=== PATIENT | male | born 1975 | race Caucasian/White ===

== ENCOUNTER 2017-08-16 10:12 | Emergency (ER) | payer MEDICARE, OTHER ==
[~2017-08-16] VITALS: Ht 172.7 cm; Wt 66.0 kg
[2017-08-16 10:49] VITALS: BP 143/80; PULSE 78; RESP 14; TEMP 99.2; O2SAT 99
[2017-08-16 13:31] LABS: AUTOMATED NEUTROPHIL # 5.7 TH/MM3 (1.8-7.7); BASOPHIL % 0.3 % (0.0-2.0); EOSINOPHIL % 0.3 % (0.0-4.0); HEMATOCRIT 43.1 % (39.0-51.0); HEMOGLOBIN 15.5 GM/DL (13.0-17.0); LYMPH % 17.6 % (9.0-44.0); LYMPHOCYTE # 1.4 TH/MM3 (1.0-4.8); MEAN CELL VOLUME 91.8 FL (80.0-100.0); MEAN CORPUSCULAR HGB CONC 35.9 % (32.0-36.0); MEAN PLATELET VOLUME 6.5 FL (7.0-11.0); MONO % 8.2 % (0.0-8.0); MONOCYTE # 0.6 TH/MM3 (0-0.9); NEUT % 73.6 % (16.0-70.0); PLATELET COUNT 272 TH/MM3 (150-450); RED BLOOD COUNT 4.69 MIL/MM3 (4.50-5.90); RED CELL DISTRIBUTION WIDTH 12.5 % (11.6-17.2); WHITE BLOOD COUNT 7.8 TH/MM3 (4.0-11.0)
--- NOTE | 2017-08-16 13:35 | PD ---
HPI Chief Complaint: Psychiatric Symptoms Time Seen by Provider: 12:29 Travel History International Travel<30 days: No Contact w/Intl Traveler<30days: No Traveled to known affect area: No History of Present Illness HPI 42-year-old male presents to the emergency department voluntarily for psych evaluation. 6 days ago he had injections and bilateral list of Kenalog and the next day he started having feelings anxiety and not being able to sleep for the past 4-5 days. 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 He had acupuncture session for his knee and the next day his hands got weak. He went to his hand doctor and received the injections into his wrist. He says he "feels like I cannot go on." He has no psychiatric history. He says he is not having suicidal thoughts, just does not feel like his body is going to make it. He says he feels like something is going on inside of him. He cannot sleep. He has not worked for 2 weeks. His says last night he was pacing around the house and saying crazy things, like he was going to and he does not want to live anymore. His states his legs were shaking last night and he was making comments that he had a tumor in his brain. He says he gets shaky and cold. He feels like his pulse is heavy. He feels like he should be having a heart attack or seizure. He says he woke up early this morning after sleeping for only about 30 minutes and felt paralyzed. He denies any chest pain, shortness of breath, abdominal pain, diarrhea, constipation, change in urine. Says he has been feeling constantly nauseated with "a little bit" of vomiting. Last vomited yesterday. Denies lightheadedness, headache, dizziness, focal deficits or weakness. He was seen at [facility] on Sunday and all his labs were normal and he was told to follow-up with a neurologist. He has an appointment with neurologist [facility]. He also has a primary care provider, Dr. Maik Barry, and has an appointment on Sunday. He states he cannot make it that long, and when he sees him he is probably not going to do anything for him. He did prescribe Xanax to his mother and has been taking the Xanax to try to sleep, without relief. He is only getting 30 minutes to 1 hour of sleep and then he is up "staring at the clock." Denies illicit drug use. Denies alcohol use. Denies tobacco use. Symptoms are moderate to severe in severity. Symptoms are possibly aggravated by Kenalog injections into the wrist, otherwise unknown. No known relieving factors. Onset and duration 6 days. Denies significant past medical history. No known allergies. Has no other medical complaints. No other modifying factors or associated signs and symptoms. 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 HEAD: Atraumatic. Normocephalic. No facial droop noted. Tongue midline. Shoulder shrug equal. Finger to nose test normal. EYES: Pupils equal and round at 3 mm with brisk reaction. No scleral icterus. No injection or drainage. PERRLA. EOMI. ENT: Mucosa pink and moist. Airway patent. NECK: Trachea midline. No lymphadenopathy. CARDIOVASCULAR: Regular rate and rhythm. No murmur appreciated. RESPIRATORY: No accessory muscle use. Breath sounds clear and equal bilaterally. No retractions or tachypnea. GASTROINTESTINAL: Abdomen soft, non-tender, nondistended. Positive bowel sounds. No hepato-splenomegaly, or palpable masses. No guarding. MUSCULOSKELETAL: No obvious deformities. No clubbing. No cyanosis. No edema. NEUROLOGICAL: Awake and alert. Oriented 4. No obvious cranial nerve deficits. Motor grossly within normal limits. Normal speech. No ataxia. No mid -line drift. No upper or lower extremity drift. Training Director strength equal bilaterally. Sensory intact and equal bilaterally. Moves all extremities. Active plantar and dorsiflexion and strength equal bilaterally. 5/5 strength to all extremities. PSYCHIATRIC: Appropriate mood and affect; insight and judgment normal. Data Data Last Documented VS Vital Signs Date Time Temp Pulse Resp B/P (MAP) Pulse Ox O2 Delivery O2 Flow Rate FiO2 08/16/17 15:36 68 18 134/81 (98) 98 Room Air 08/16/17 10:49 99.2 Orders Orders Complete Blood Count With Diff (08/16/17 12:57) Comprehensive Metabolic Panel (08/16/17 12:57) Thyroid Stimulating Hormone (08/16/17 12:57) Urinalysis - C+S If Indicated (08/16/17 12:57) Psych Screen (08/16/17 12:57) Drug Screen, Random Urine (08/16/17 12:57) Alcohol (Ethanol) (08/16/17 12:57) Salicylates (Aspirin) (08/16/17 12:57) Tylenol (Acetaminophen) (08/16/17 12:57) Lorazepam (Ativan) (08/16/17 15:00) Labs Laboratory Tests Test 08/16/17 13:15 White Blood Count 7.8 TH/MM3 Red Blood Count 4.69 MIL/MM3 Hemoglobin 15.5 GM/DL Hematocrit 43.1 % Mean Corpuscular Volume 91.8 FL Mean Corpuscular Hemoglobin 33.0 PG Mean Corpuscular Hemoglobin Concent 35.9 % Red Cell Distribution Width 12.5 % Platelet Count 272 TH/MM3 Mean Platelet Volume 6.5 FL Neutrophils (%) (Auto) 73.6 % Lymphocytes (%) (Auto) 17.6 % Monocytes (%) (Auto) 8.2 % Eosinophils (%) (Auto) 0.3 % Basophils (%) (Auto) 0.3 % Neutrophils # (Auto) 5.7 TH/MM3 Lymphocytes # (Auto) 1.4 TH/MM3 Monocytes # (Auto) 0.6 TH/MM3 Eosinophils # (Auto) 0.0 TH/MM3 Basophils # (Auto) 0.0 TH/MM3 CBC Comment DIFF FINAL Differential Comment Urine Color YELLOW Urine Turbidity CLEAR Urine pH 7.0 Urine Specific [place] 1.011 Urine Protein NEG mg/dL Urine Glucose (UA) NEG mg/dL Urine Ketones NEG mg/dL Urine Occult Blood NEG Urine Nitrite NEG Urine Bilirubin NEG Urine Urobilinogen LESS THAN 2.0 MG/DL Urine Leukocyte Esterase NEG Urine RBC LESS THAN 1 /hpf Urine Mucus FEW /lpf Microscopic Urinalysis Comment CULT NOT INDICATED Blood Urea Nitrogen 11 MG/DL Creatinine 0.94 MG/DL Random Glucose 89 MG/DL Total Protein 7.3 GM/DL Albumin 4.1 GM/DL Calcium Level 8.6 MG/DL Alkaline Phosphatase 57 U/L Aspartate Amino Transf (AST/SGOT) 20 U/L Alanine Aminotransferase (ALT/SGPT) 26 U/L Total Bilirubin 0.6 MG/DL Sodium Level 141 MEQ/L Potassium Level 3.7 MEQ/L Chloride Level 106 MEQ/L Carbon Dioxide Level 27.8 MEQ/L Anion Gap 7 MEQ/L Estimat Glomerular Filtration Rate 87 ML/MIN Thyroid Stimulating Hormone 3rd Gen 1.070 uIU/ML Salicylates Level LESS THAN 1.7 MG/DL Urine Opiates Screen NEG Acetaminophen Level LESS THAN 2.0 MCG/ML Urine Barbiturates Screen NEG Urine Amphetamines Screen NEG Urine Benzodiazepines Screen POS Urine Cocaine Screen NEG Urine Cannabinoids Screen NEG Ethyl Alcohol Level LESS THAN 3 MG/DL MDM Medical Decision Making Medical Screen Exam Complete: Yes Emergency Medical Condition: Yes Medical Record Reviewed: Yes Differential Diagnosis Anxiety, chadwick, insomnia, encounter for psychological evaluation Narrative Course Patient presents voluntarily. Physical examination and vital signs are essentially unremarkable. Patient has no medical complaints to report. Psych screen has been ordered. If the laboratory results are unremarkable, the patient will be medically cleared for psychiatric evaluation and disposition. 1710: MELI Braswell evaluated the patient and cleared the patient for discharge. Patient contracts safety. Denies suicidal or homicidal ideations. Patient will be provided community resource packet to [facility] for follow-up. Has friends and family for support. Patient was medically cleared by alternate provider prior to psych screening. Patient has been evaluated by psychiatry and and is now cleared for discharge. Diagnosis Primary Impression: Insomnia due to anxiety and fear Referrals: Neurologist Primary Care Physician Psychiatrist Patient Instructions: Anxiety (ED), General Instructions, Insomnia (ED) Additional Instructions: Contract safety to your self and others Follow-up with neurology Follow-up with psychiatry Follow-up with primary care provider Return to the emergency department immediately with worsening of symptoms Med/Other Pt SpecificInfo: Prescription(s) given Scripts Quetiapine (Seroquel) 50 Mg Tab 50 MG PO HS for Insomnia, #30 TAB 0 Refills Prov: Edel Huff 08/16/17 Disposition: 01 DISCHARGE HOME Condition: Stable [place] Toussaint August 16, 2017 13:35
[2017-08-16 13:54] LABS: ALBUMIN 4.1 GM/DL (3.4-5.0); ALT (GPT) 26 U/L (12-78); AST (GOT) 20 U/L (15-37); BICARBONATE 27.8 MEQ/L (21.0-32.0); BILIRUBIN, URINE NEG (NEG); BLOOD UREA NITROGEN 11 MG/DL (7-18); BLOOD, URINE NEG (NEG); CALCIUM 8.6 MG/DL (8.5-10.1); CHLORIDE 106 MEQ/L (98-107); CREATININE 0.94 MG/DL (0.60-1.30); GLOMERULAR FILTRATION RATE 87 ML/MIN (>89); GLUCOSE,RANDOM 89 MG/DL (74-106); GLUCOSE,URINE NEG (NEG); KETONE, URINE NEG (NEG); MUCUS URINE FEW /lpf (OCC); NITRITE,URINE NEG (NEG); SODIUM (NA) 141 MEQ/L (136-145); URINE COLOR YELLOW (YELLW/STRAW); URINE LEUKOCYTE ESTERASE NEG (NEG)
[2017-08-16 14:04] LABS: ALKALINE PHOSPHATASE 57 U/L (45-117); TOTAL BILIRUBIN ADULT 0.6 MG/DL (0.2-1.0); TOTAL PROTEIN 7.3 GM/DL (6.4-8.2)
[2017-08-16 14:18] LABS: ACETAMINOPHEN LESS THAN 2.0 MCG/ML (10.0-30.0)
[2017-08-16] MEDS ORDERED: LORazepam 1 MG TAB PO ONE (15:00)
[2017-08-16 15:36] VITALS: BP 134/81; PULSE 68; RESP 18; O2SAT 98
[2017-08-16] MEDS ORDERED: SERO50TA PO (16:38)
--- NOTE | 2017-08-16 17:21 | PD ---
History of Present Illness Chief Complaint: Psychiatric Symptoms Time Seen by Provider: 16:45 Travel History International Travel<30 Days: No Contact w/Intl Traveler<30days: No Known affected area: No History of Present Illness: 42-year old, , male presents voluntarily to the facility for insomnia and anxiety. He has no history of mental illness. Reviewed electronic medical records, labs, discuss case with staff. Patient evaluation was performed in his room and the ED main with his present. 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 He is being treated by a physician who gave him bilateral injections of Kenalog. The day after the injections he reports that he began to experience flushing, racing heartbeat, and insomnia. He has attempted to treat his insomnia with 0.25 mg Xanax. He has been unsuccessful so far. Upon examination patient is awake, alert, and oriented 4. He was medicated with Ativan by the medical provider and during examination he is lying on the bed relaxed. His speech is clear, organized, and logical. There is no indication of internal stimulation nor thought blocking. He denies being suicidal, homicidal, experiencing auditory or visual hallucinations. Patient does confess to being a bit of a worrier and to suffering from some "hypochondriac". He states that when he experiencing these symptoms at night he wakes up thinking that "I have a brain tumor". He is continuing to be worked up for the neuropathy in his hands, this is caused him stress due to the nature of his career. He lives with his and 2 children and reports being happily . His major concern at this point is getting adequate sleep. 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 No familial mental health history that the patient is aware of. Allergies-Medications (Allergen,Severity, Reaction): Coded Allergies: No Known Allergies (Unverified , 08/16/17) Reported Meds & Prescriptions Reported Meds & Active Scripts Active Seroquel (Quetiapine Fumarate) 50 Mg Tab 50 Mg PO HS Mental Status Examination Appearance: Appropriate Consciousness: Alert Orientation: x4 Motor Activity: Normal gait Speech: Unremarkable Language: Adequate Fund of Knowledge: Adequate Attention and Concentration: Adequate Memory: Unremarkable Mood: Anxious Affect: Anxious Thought Process & Associations: Intact, Logical Thought Content: Appropriate Hallucination Type: None Delusion Type: None Suicidal Ideation: No Suicidal Plan: No Suicidal Intention: No Homicidal Ideation: No Homicidal Intention: No Insight: Adequate Judgment: Adequate MDM Medical Decision Making Medical Record Reviewed: Yes Assessment/Plan 42 year old , male who reports to this facility voluntarily for anxiety and insomnia. Upon examination today patient is alert and oriented 4. His speech is clear, organized, and logical. There is no indication of internal stimulation or thought blocking. His mood and affect are both slightly anxious. He denies suicidal ideation, homicidal ideation, auditory or visual hallucinations. He reports that he has been undergoing testing due to bilateral neuropathy of his hands. 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 After receiving recent bilateral IM injections of steroids he began experiencing flushing, racing heart, and insomnia. Explained to patient that these can be side effects of injected steroids. I consulted with Dr. Rees as to treatment for this gentleman as I do not feel he meets inpatient admission criteria. Patient is to be discharged to home with a prescription for Seroquel 50 mg taken at bedtime. He is advised to obtain a psychiatrist for follow-up. He was instructed to return to this facility should his condition worsen. Orders Orders Complete Blood Count With Diff (08/16/17 12:57) Comprehensive Metabolic Panel (08/16/17 12:57) Thyroid Stimulating Hormone (08/16/17 12:57) Urinalysis - C+S If Indicated (08/16/17 12:57) Psych Screen (08/16/17 12:57) Drug Screen, Random Urine (08/16/17 12:57) Alcohol (Ethanol) (08/16/17 12:57) Salicylates (Aspirin) (08/16/17 12:57) Tylenol (Acetaminophen) (08/16/17 12:57) Lorazepam (Ativan) (08/16/17 15:00) Results Vital Signs Date Time Temp Pulse Resp B/P (MAP) Pulse Ox O2 Delivery O2 Flow Rate FiO2 08/16/17 15:36 68 18 134/81 (98) 98 Room Air 08/16/17 10:49 99.2 78 14 143/80 (101) 99 Laboratory Tests Test 08/16/17 13:15 White Blood Count 7.8 Red Blood Count 4.69 Hemoglobin 15.5 Hematocrit 43.1 Mean Corpuscular Volume 91.8 Mean Corpuscular Hemoglobin 33.0 Mean Corpuscular Hemoglobin Concent 35.9 Red Cell Distribution Width 12.5 Platelet Count 272 Mean Platelet Volume 6.5 Neutrophils (%) (Auto) 73.6 Lymphocytes (%) (Auto) 17.6 Monocytes (%) (Auto) 8.2 Eosinophils (%) (Auto) 0.3 Basophils (%) (Auto) 0.3 Neutrophils # (Auto) 5.7 Lymphocytes # (Auto) 1.4 Monocytes # (Auto) 0.6 Eosinophils # (Auto) 0.0 Basophils # (Auto) 0.0 CBC Comment DIFF FINAL Differential Comment Urine Color YELLOW Urine Turbidity CLEAR Urine pH 7.0 Urine Specific [place] 1.011 Urine Protein NEG Urine Glucose (UA) NEG Urine Ketones NEG Urine Occult Blood NEG Urine Nitrite NEG Urine Bilirubin NEG Urine Urobilinogen LESS THAN 2.0 Urine Leukocyte Esterase NEG Urine RBC LESS THAN 1 Urine Mucus FEW Microscopic Urinalysis Comment CULT NOT INDICATED Blood Urea Nitrogen 11 Creatinine 0.94 Random Glucose 89 Total Protein 7.3 Albumin 4.1 Calcium Level 8.6 Alkaline Phosphatase 57 Aspartate Amino Transf (AST/SGOT) 20 Alanine Aminotransferase (ALT/SGPT) 26 Total Bilirubin 0.6 Sodium Level 141 Potassium Level 3.7 Chloride Level 106 Carbon Dioxide Level 27.8 Anion Gap 7 Estimat Glomerular Filtration Rate 87 Thyroid Stimulating Hormone 3rd Gen 1.070 Salicylates Level LESS THAN 1.7 Urine Opiates Screen NEG Acetaminophen Level LESS THAN 2.0 Urine Barbiturates Screen NEG Urine Amphetamines Screen NEG Urine Benzodiazepines Screen POS Urine Cocaine Screen NEG Urine Cannabinoids Screen NEG Ethyl Alcohol Level LESS THAN 3 Diagnosis Primary Impression: Insomnia due to anxiety and fear Psychiatrically Cleared: Yes Prescriptions Quetiapine (Seroquel) 50 Mg Tab 50 MG PO HS for Insomnia, #30 TAB 0 Refills Prov: Edel Huff 08/16/17 Condition: Stable Edel Huff August 16, 2017 17:21
[2017-08-16 18:51] VITALS: BP 122/77
== END 2017-08-16 18:53 | disposition home or self-care (01) ==
LOC: NEPD 10:12
DX: G47.00 Insomnia, unspecified (principal); F41.9 Anxiety disorder, unspecified; F19.90 Other psychoactive substance use, unspecified, uncomplicated; G62.9 Polyneuropathy, unspecified; Z87.820 Personal history of traumatic brain injury
CPT/HCPCS: 80053; 80307; 81001; 84443; 85025; 99283